=== PATIENT | male | born 1975 | race African-American/Black ===

== ENCOUNTER 2017-05-16 07:43 | Observation (INO) ==
[2017-05-16] MEDS ORDERED: ALUM/MAG/SIMETH/LIDO VISC 1:1 30 ML BOTTLE PO STA (07:58)
[2017-05-16] MEDS ORDERED: ASPIRIN 325 MG TABLET PO STA (07:58)
[2017-05-16] MEDS ORDERED: ONDANSETRON 4 MG/2 ML VIAL IV PRN ×2 (07:58→10:16)
[2017-05-16] MEDS ORDERED: ENOXAPARIN 100 MG/ML SYRINGE SUBCUT STA (07:58)
[2017-05-16] MEDS ORDERED: MORPHINE 2 MG/1 ML SYRINGE IV PRN ×2 (07:58→10:16)
[2017-05-16] MEDS ORDERED: NITROGLYCERIN SL 0.4 MG TABLET SL PRN (07:58)
[2017-05-16] MEDS ORDERED: NITROGLYCERIN 2% OINT 1 INCH/GM PACK TOP STA (07:58)
[2017-05-16] MEDS ORDERED: ASPIRIN 325 MG TABLET ONE (08:08)
[2017-05-16] MEDS ORDERED: NITROGLYCERIN 2% OINT 1 INCH/GM PACK TOP ONE (08:08)
[2017-05-16] MEDS ORDERED: ENOXAPARIN 100 MG/ML SYRINGE SUBCUT ONE (08:08)
[2017-05-16] MEDS ORDERED: ALUM/MAG/SIMETH/LIDO VISC 1:1 30 ML BOTTLE PO ONE (08:08)
[2017-05-16 08:41] LABS: Albumin 4.3 G/DL (3.4-5.0); Bilirubin,Total 0.7 MG/DL (0.2-1.0); Osmolality,Calculated 275.7 MOS/KG (273-304); Potassium 5.4 MMOL/L (3.5-5.1); Total Protein 7.9 G/DL (6.4-8.3)
[2017-05-16 08:43] LABS: Basophils % 0.5 % (0.0-0.8); Eosinophils # 0.1 10*3/uL (0.0-0.87); Eosinophils % 0.9 % (0.00-10.9); Hematocrit 52.4 VOL% (42.0-52.0); Hemoglobin 17.1 GM/DL (14.0-18.0); Lymphocytes # 1.3 10*3/uL (1.4-4.0); Lymphocytes % 22.6 % (21.2-54.2); Mean Corpuscular HGB Conc 32.6 GM/DL (32-36); Mean Corpuscular Hemoglobin 27 PG (27-34); Mean Platelet Volume 10.6 FL (9.6-12.0); Monocytes # 0.6 10*3/uL (0.11-0.8); Monocytes % 10.1 % (1.7-12.7); Neutrophils # 3.7 10*3/uL (1.4-7.4); Neutrophils % 65.9 % (38.7-73.9); Platelet Count 212 T/CUMM (130-400); Red Blood Count 6.31 MC/CUMM (3.8-5.5); Red Cell Distribution Width 13.2 % (9.3-17.3); White Blood Count 5.6 T/CUMM (4-12)
[2017-05-16 08:52] LABS: PT Patient Result 10.8 SECS; Partial Thromboplastin Time 28.8 SECS (0-40)
[2017-05-16 09:10] LABS: Barbiturates Screen,Urine Negative (Negative); Benzodiazepines Screen,Urine Negative (Negative); Cannabinoid Screen,Urine Negative (Negative); Opiate Screen,Urine Negative (Negative); Phencyclidine Screen,Urine Negative (Negative)
[2017-05-16] MEDS ORDERED: MAGNESIUM SULF RIDER 2 GM in PREMIX 1 EACH IV PRN ×2 (10:23→15:41)
[2017-05-16] MEDS ORDERED: MAGNESIUM SULF RIDER 4 GM in PREMIX 1 EACH IV PRN (10:23)
[2017-05-16] MEDS ORDERED: PANTOPRAZOLE 40 MG TABLET PO SCH (10:30)
[2017-05-16 11:17] LABS: Magnesium 2.3 MG/DL (1.8-2.4); Thyroid Stimulating Hormone 0.688 uIU/ml (0.358-3.74)
[2017-05-16] MEDS ORDERED: ONDANSETRON 4 MG/2 ML VIAL ONE (11:59)
[2017-05-16] MEDS ORDERED: PANTOPRAZOLE 40 MG TABLET PO ONE (12:00)
[2017-05-16] MEDS ORDERED: MORPHINE 2 MG/1 ML SYRINGE ONE (12:00)
[2017-05-16] MEDS ORDERED: POTASSIUM CHLORIDE RIDER 10 MEQ in PREMIX 1 EACH IV PRN (15:41)
[2017-05-16] MEDS ORDERED: DIAZEPAM 5 MG TABLET PO ONE (15:41)
[2017-05-16] MEDS ORDERED: diphenhydrAMINE CAP 25 MG CAPSULE PO ONE (15:41)
[2017-05-16] MEDS ORDERED: HEPARIN/NACL 0.9% 2 UNITS/ML 2,000 ML IV ONE (15:47)
[2017-05-16] MEDS ORDERED: HYDROmorphone 2 MG/1 ML VIAL ONE (15:47)
[2017-05-16] MEDS ORDERED: LIDOCAINE 1% 20 ML VIAL ONE (15:47)
[2017-05-16] MEDS ORDERED: MIDAZOLAM 2 MG/2 ML VIAL ONE (15:48)
[2017-05-16] MEDS ORDERED: NITROGLYCERIN DRIP 50 MG/250 ML BOTTLE IV ONE (15:52)
[2017-05-16] MEDS ORDERED: VERAPAMIL 5 MG/2 ML VIAL ONE (15:54)
[2017-05-16] MEDS ORDERED: diphenhydrAMINE CAP 50 MG CAPSULE ONE (15:59)
[2017-05-16] MEDS ORDERED: ENOXAPARIN 30 MG/0.3 ML SYRINGE ONE (16:27)
[2017-05-16] MEDS ORDERED: SODIUM CHLORIDE 0.9% 1,000 ML IV SCH (17:00)
[2017-05-16 20:09] VITALS: BP 121/77
[2017-05-16] MEDS ORDERED: SIMVASTATIN 40 MG TABLET PO SCH (21:00)
[2017-05-17] MEDS ORDERED: ASPIRIN EC 81 MG TABLET PO SCH (09:00)
[2017-05-17] MEDS ORDERED: METOPROLOL SUCCINATE XL 25 MG TABLET PO SCH (09:00)
[2017-05-17] MEDS ORDERED: ASPIRIN EC 325 MG TABLET PO SCH (09:00)
== END 2017-05-16 20:15 | disposition home or self-care (01) ==
LOC: N.ED 07:43 → N.EDINP 07:43 → SUATTDRO 09:33 → N.EDINP 15:15 → N.4E 15:24
PROVIDERS: ADMIT Internal Medicine; ATTEND Internal Medicine
PROC: CLCCHCL (ICD-10-PCS; 2017-05-16 16:15)